=== PATIENT | male | born 1985 | race Caucasian/White ===

== ENCOUNTER 2019-03-08 12:32 | Emergency (ER) | payer SELFPAY ==
[~2019-03-08] VITALS: Ht 188 cm; Wt 75.0 kg
[2019-03-08] MEDS ORDERED: BUPR1FIL3 SL (13:05)
[2019-03-08 15:56] VITALS: BP 115/70
== END 2019-03-08 16:02 | disposition home or self-care (01) ==
LOC: EMS 12:34
DX: F10.10 Alcohol abuse, uncomplicated (principal); K21.9 Gastro-esophageal reflux disease without esophagitis; F12.90 Cannabis use, unspecified, uncomplicated